=== PATIENT | female | born 1985 | race Caucasian/White ===

== ENCOUNTER 2024-03-18 15:35 | Inpatient (IN) | payer OTHER ==
[2024-03-18 17:04] VITALS: BMI 30.5
[2024-03-18] MEDS ORDERED: ACETAMINOPHEN 325 MG TABLET (FP) PO PRN ×2 (17:43→18:04)
[2024-03-18] MEDS ORDERED: NICOTINE POLACRILEX 2 MG GUM BUC PRN (17:43)
[2024-03-18] MEDS ORDERED: BENZOCAINE/MENTHOL (CHLORASEPTIC ) LOZENGE MM PRN (17:43)
[2024-03-18] MEDS ORDERED: NICOTINE POLACRILEX 2 MG LOZENGE BC PRN (17:43)
[2024-03-18] MEDS ORDERED: hydrOXYzine PAMOATE 25 MG CAPSULE (FP) PO PRN (17:43)
[2024-03-18] MEDS ORDERED: BISMUTH SUBSALICYLATE 524 MG/30 ML PO PRN (17:43)
[2024-03-18] MEDS ORDERED: MAGNESIUM HYDROX 2400MG/30ML ORAL SUSPENSION 30 ML CUP PO PRN (17:43)
[2024-03-18] MEDS ORDERED: DICYCLOMINE HCL 10 MG CAPSULE PO PRN (17:43)
[2024-03-18] MEDS ORDERED: guaiFENesin 600 MG TABLET.ER (FP) PO PRN (17:43)
[2024-03-18] MEDS ORDERED: LOPERAMIDE HCL 2 MG CAPSULE PO PRN (17:43)
[2024-03-18] MEDS ORDERED: BENZONATATE 200 MG CAPSULE PO PRN (17:43)
[2024-03-18] MEDS: ONDANSETRON *ODT* 4 MG TABLET SL PRN (18:08)
[2024-03-18] MEDS ORDERED: ONDANSETRON *ODT* 4 MG TABLET ONE (18:08)
[2024-03-18] MEDS ORDERED: chlordiazePOXIDE HCL 25 MG CAPSULE ONE (18:58)
[2024-03-18] MEDS: chlordiazePOXIDE HCL 25 MG CAPSULE PO ONE (19:01)
[2024-03-18] MEDS: MAG HYDROX/AL HYDROX/SIMETH 30 ML UNIT-DOSE CUP PO PRN (20:09)
[2024-03-18] MEDS: FAMOTIDINE 20 MG TABLET PO ONE ×2 (20:25→20:28)
[2024-03-18] MEDS: chlordiazePOXIDE HCL 25 MG CAPSULE PO SCH (22:28)
[2024-03-18] MEDS: MELATONIN 5 MG TABLETS PO SCH (22:28)
[2024-03-18] MEDS: THIAMINE 100 MG TABLET PO SCH (22:28)
[2024-03-19] MEDS: PRENATAL VITAMINS W/ FOLIC ACID TABLET (FP) PO SCH (10:16)
[2024-03-19] MEDS: IBUPROFEN 600 MG TABLET (FP) PO PRN (10:20)
[2024-03-19 14:26] LABS: HEMATOCRIT 35.9 % (32.4-45.2); HEMOGLOBIN 11.7 GM/dL (10.7-15.3); MCHC 32.5 g/dl (32.0-36.0); MEAN CELL VOLUME 79.9 fl (80-96); MEAN PLT VOLUME 10.2 fl (7.5-11.1); PLATELET COUNT 228 10^3/uL (134-434); RBC 4.49 M/mm3 (3.60-5.2); RDW 18.1 % (11.6-15.6); WHITE BLOOD COUNT 5.5 K/mm3 (4.0-10.0)
[2024-03-19 14:47] LABS: POTASSIUM 3.6 mmol/L (3.5-5.1)
[2024-03-19 14:50] LABS: ALBUMIN 4.1 g/dl (3.4-5.0); BLOOD UREA NITROGEN 15.7 mg/dL (7-18)
[2024-03-19 14:52] LABS: CALCIUM 9.7 mg/dL (8.5-10.1)
[2024-03-19 14:53] LABS: CREATININE 0.7 mg/dL (0.55-1.3)
[2024-03-19 14:54] LABS: BILIRUBIN,TOTAL 0.8 mg/dL (0.2-1)
[2024-03-19 14:55] LABS: TOT PROT 7.5 g/dl (6.4-8.2)
[2024-03-19] MEDS: METHOCARBAMOL 500 MG TABLET PO PRN (22:10)
[2024-03-20] MEDS: chlordiazePOXIDE HCL 25 MG CAPSULE PO PRN (02:56)
[2024-03-20] MEDS: chlordiazePOXIDE HCL 25 MG CAPSULE PO SCH (06:00)
[2024-03-20] MEDS: FAMOTIDINE 20 MG TABLET PO SCH (10:10)
[2024-03-20] MEDS: POLYETHYLENE GLYCOL (HEALTHYLAX) 3350 17 GM PACKET PO PRN (10:11)
[2024-03-21] MEDS ORDERED: chlordiazePOXIDE HCL 10 MG CAPSULE PO PRN
[2024-03-21] MEDS: chlordiazePOXIDE HCL 10 MG CAPSULE PO SCH (05:07)
[2024-03-21 09:20] VITALS: RESP 18
[2024-03-21] MEDS: IBUPROFEN 400 MG TABLET (FP) PO PRN (12:15)
[2024-03-21 21:32] VITALS: TEMP 97.6
[2024-03-22] MEDS: chlordiazePOXIDE HCL 10 MG CAPSULE PO SCH (05:09)
[2024-03-22 06:31] VITALS: BP 108/76; PULSE 81
[2024-03-23] MEDS ORDERED: chlordiazePOXIDE HCL 10 MG CAPSULE PO ONE (05:00)
== END 2024-03-22 09:35 | disposition home or self-care (01) | DRG 775 ==
LOC: YASAS 15:35 → Y3N 19:01
PROVIDERS: ADMIT Allergy & Immunology; ATTEND Psychiatry & Neurology Pain Medicine
PROC: HZ2ZZZZ Detoxification Services for Substance Abuse Treatment (ICD-10-PCS; principal; 2024-03-19)
DX: F10.230 Alcohol dependence with withdrawal, uncomplicated (principal); F12.20 Cannabis dependence, uncomplicated; F17.210 Nicotine dependence, cigarettes, uncomplicated; F32.A Depression, unspecified; J45.909 Unspecified asthma, uncomplicated; K21.9 Gastro-esophageal reflux disease without esophagitis; Z88.0 Allergy status to penicillin; Z88.5 Allergy status to narcotic agent; Z88.8 Allergy status to other drugs, medicaments and biological substances
CPT/HCPCS: 36415; 80053; 80305; 80307; 81025; 85027; 86780; 93005; 93010; Q0162